=== PATIENT | female | born 1960 | race Two or more races ===

== ENCOUNTER 2020-02-27 07:18 | Day surgery (SDC) | payer OTHER ==
[~2020-02-27 07:18] MED LIST: COZAAR25 MG PO; LIPITOR PO; SYNTHROID75 MCG PO; TOPROL XL25 M1 PO
== END 2020-02-27 15:50 | disposition home or self-care (01) ==
LOC: CIR.AMB 07:18
PROVIDERS: ATTEND Surgery
DX: D24.2 Benign neoplasm of left breast (principal); Z20.828 Contact with and (suspected) exposure to other viral communicable diseases